=== PATIENT | male | born 2005 | race Caucasian/White ===

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

== ENCOUNTER 2024-11-17 21:45 | Outpatient (CLI) | payer BC, SELFPAY ==
[2024-11-18 13:52] LABS: Monoscreen (Rapid) Positive (Negative)
== END 2024-11-17 23:59 | disposition home or self-care (01) ==
LOC: LAB.DROPOF 21:46
PROVIDERS: PCP Nurse Practitioner Family; Visit Provider Nurse Practitioner Family
DX: J02.9 Acute pharyngitis, unspecified (principal)
CPT/HCPCS: 86318

== ENCOUNTER 2024-12-16 16:11 | Outpatient (CLI) | payer BC, SELFPAY ==
[2024-12-16 19:35] LABS: Hematocrit 43.7 % (42.0-52.0); Hemoglobin 14.9 g/dL (14.1-18.0); Immature Granulocytes % 0.3 %; Mean Corpuscular HGB Conc 34.1 g/dL (31.8-35.4); Mean Corpuscular Hemoglobin 28.7 pg (27.0-31.2); Mean Corpuscular Volume 84.2 fl (80-94); Nucleated Red Blood Cells % 0 %; Platelet Count 337 K/mm3 (142-424); Red Blood Count 5.19 M/mm3 (4.60-6.20); Red Cell Distribution Width-SD 38.3 fL; White Blood Count 6.2 K/mm3 (4.5-13.0)
[2024-12-16 20:31] LABS: Thyroid Stimulating Hormone 1.71 uIU/mL (0.465-4.68)
== END 2024-12-16 23:59 | disposition home or self-care (01) ==
LOC: LAB.DROPOF 12-17 12:39
PROVIDERS: PCP Nurse Practitioner Family; Visit Provider Nurse Practitioner Family
DX: E03.9 Hypothyroidism, unspecified (principal); E78.5 Hyperlipidemia, unspecified; F41.9 Anxiety disorder, unspecified; E66.9 Obesity, unspecified; R53.83 Other fatigue
CPT/HCPCS: 84443; 85025

== ENCOUNTER 2025-01-16 16:19 | Outpatient (CLI) | payer BC, SELFPAY ==
--- NOTE | 2025-01-16 16:32 | XR_ITS ---
FINAL REPORT TECHNIQUE: Chest PA & Lateral CLINICAL HISTORY: cough/congestion COMPARISON: None FINDINGS: 2 views of the chest were performed. The heart size is normal. The mediastinum is within normal limits. There is no acute cardiopulmonary process. There are no pleural effusions. There is no pneumothorax. The bony thorax appears intact. IMPRESSION: No acute cardiopulmonary process. Reviewed, Interpreted and Dictated by Chico Arias MD Transcribed by Vicky Ballesteros Authenticated and [facility]
== END 2025-01-16 23:59 | disposition home or self-care (01) ==
LOC: RAD 16:20
PROVIDERS: PCP Nurse Practitioner Family; Visit Provider Nurse Practitioner
DX: R05.9 Cough, unspecified (principal); R09.89 Other specified symptoms and signs involving the circulatory and respiratory systems
CPT/HCPCS: 71046